=== PATIENT | female | born 1965 | race Caucasian/White ===

== ENCOUNTER 2017-06-15 09:14 | Day surgery (SDC) | payer BC, MEDICAID ==
[2017-06-15] MEDS ORDERED: Dextrose 5%-Lactated Ringers 1,000 ML IV SCH (09:45)
[2017-06-15] MEDS ORDERED: Midazolam 1 MG/ML 2 ML SDV ONE (11:09)
[2017-06-15] MEDS ORDERED: Propofol 200 MG/20 ML SDV ONE ×2 (11:12→11:16)
[2017-06-15] MEDS ORDERED: Ondansetron 4 MG/2 ML SDV ONE (11:16)
[2017-06-15 12:50] VITALS: BP 144/93
--- NOTE | 2017-06-18 13:35 | OR ---
DATE OF PROCEDURE: 06/15/2017 PREOPERATIVE DIAGNOSIS: Recurrent gastroesophageal reflux disease, status post previous Radha fundoplication. POSTOPERATIVE DIAGNOSES: 1. 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 2. Mild antral gastritis. PROCEDURES: 1. Esophagogastroduodenoscopy with: a. Biopsies of esophagogastric junction for histologic evaluation. b. Biopsies of antrum for CLOtest. ANESTHESIA: IV sedation. INDICATION FOR PROCEDURE: This is a 52-year-old, status post Radha fundoplication done in [place] in 2003. Recently, she has had increasing problems with reflux. Upper GI endoscope showed recurrence of the reflux with some evident destruction of the Radha fundoplication. There was also a suggestion of esophageal dysmotility at the time of the upper GI. We, therefore, obtained esophageal manometry, which was recently performed in [place] and was read as normal. There was no abnormal esophageal motility identified. The plan is to proceed with upper GI endoscopy to evaluate the current anatomy in preparation for probable redo Radha fundoplication. Potential risks including bleeding and perforation were discussed, and the patient wishes to proceed. DETAILS OF PROCEDURE: The patient was taken to the operating room and placed in a left lateral decubitus position. IV sedation was administered, after which the upper GI endoscope was passed orally through the length of the esophagus and into the stomach with retroflexion view of the fundus, and thereafter through the pyloric channel and into the proximal duodenum. The visualized hypopharynx, larynx, upper esophageal sphincter, and esophageal body were unremarkable with no dilation of the esophageal body. The patient did have some recurrence of the hiatal hernia probably measuring around 3 to 4 cm. There was a quite extensive upward extension of the columnar type mucosa, suggestive of possible Mcduffie's esophagus. There was no plaquing or stricturing, i.e. no gross evidence of neoplastic change per se. Upon entering the stomach, retroflexion revealed only a small remnant of the usual ridge one sees following Radha fundoplication, further indicating the breakdown of that procedure. There was some mild redness in the antrum. Otherwise, the pyloric channel and duodenum at the junction of the third and fourth portions were unremarkable. At this point, biopsies were obtained from the antrum and sent for CLOtest for H. pylori. Multiple biopsies were obtained circumferentially in the area of possible Mcduffie's esophagus at the area around the esophagogastric junction. Minimal bleeding from the biopsy sites was seen and the procedure then concluded. The patient was taken to the recovery room in satisfactory condition. Plan at this point will be to proceed with a redo Radha fundoplication. This will be scheduled for June 25. She is aware that this tends to be not necessarily as efficacious of a procedure. In many cases, will convert these patients to something nidia to Estelle-en-Y gastric bypass if the anatomy is not suitable for reasonable redo Radha fundoplication. However, given the patient's medical comorbidities, it appears to be contraindicated. It is notable that she does not have any gross evidence of gastroparesis at this time with the stomach being completely empty of any food and/or bile at the time of examination. The surgery will be tentatively scheduled for June 25, 2017. Yossi Webster MD /[id number]
== END 2017-06-15 12:50 | disposition home or self-care (01) ==
LOC: JP.SDS 09:14
PROVIDERS: ATTEND Surgery
DX: K29.50 Unspecified chronic gastritis without bleeding (principal); K44.9 Diaphragmatic hernia without obstruction or gangrene; K21.9 Gastro-esophageal reflux disease without esophagitis; F32.9 Major depressive disorder, single episode, unspecified; E03.9 Hypothyroidism, unspecified; E11.9 Type 2 diabetes mellitus without complications; E53.8 Deficiency of other specified B group vitamins; Z98.890 Other specified postprocedural states; Z79.899 Other long term (current) drug therapy; Z88.8 Allergy status to other drugs, medicaments and biological substances
CPT/HCPCS: 43239; 87081; J2250; J2405; J2704; 88305

== ENCOUNTER 2017-06-25 08:37 | Inpatient (IN) | payer BC, MEDICAID ==
[~2017-06-25 08:37] MED LIST: Dexamethasone 4 MG/ML SDV ONE; Glycopyrrolate 0.2 MG/ML 5 ML MDV ONE; Neostigmine Methylsulfate 1 MG/ML 5 ML Syringe ONE; Ondansetron 4 MG/2 ML SDV ONE; Propofol 200 MG/20 ML SDV ONE; Rocuronium 50 MG/5 ML Vial ONE; Succinylcholine 200 MG/10 ML MDV ONE
[2017-06-25] MEDS ORDERED: Gabapentin 300 MG Cap PO ONE (09:00)
[2017-06-25] MEDS ORDERED: Dextrose 5%-Lactated Ringers 1,000 ML IV SCH (09:00)
[2017-06-25] MEDS ORDERED: Scopolamine 1.5 MG Transdermal Patch TOP SCH (09:00)
[2017-06-25] MEDS ORDERED: Celecoxib 200 MG Cap PO ONE (09:00)
[2017-06-25] MEDS: HYDROmorphone/Normal Saline 15 MG/30 ML PCA IV PRN ×2 (11:02→16:35)
[2017-06-25] MEDS: cefOXitin 2 GM in Sodium Chloride 0.9% 50 ML IV ONE ×2 (13:01→17:47)
[2017-06-25] MEDS ORDERED: Lactated Ringers 1,000 ML ONE (13:35)
[2017-06-25] MEDS ORDERED: fentaNYL 100 MCG/2 ML SDV ONE (14:31)
[2017-06-25] MEDS ORDERED: Naloxone 0.4 MG/ML SDV IV PRN (16:01)
[2017-06-25] MEDS ORDERED: Ondansetron 4 MG/2 ML SDV IVPUSH PRN (16:03)
[2017-06-25] MEDS ORDERED: Ibuprofen 600 MG Tab PO PRN (16:05)
[2017-06-25] MEDS ORDERED: Glucose Gel 15 GM in 37.5 GM Tube PO PRN (16:07)
[2017-06-25] MEDS ORDERED: Glucagon,Human Recombinant 1 MG Vial IM PRN (16:07)
[2017-06-25] MEDS ORDERED: 50% Dextrose in Water 50 ML Syringe IVPUSH PRN (16:07)
[2017-06-25] MEDS ORDERED: Pseudoephedrine 30 MG Tab PO PRN (16:09)
[2017-06-25] MEDS ORDERED: Temazepam 15 MG Cap PO PRN (16:27)
[2017-06-25] MEDS: Pantoprazole 40 MG Vial IV SCH (16:38)
[2017-06-25] MEDS: Metoclopramide 10 MG/2 ML SDV IVPUSH SCH (16:42)
[2017-06-25] MEDS: Insulin Aspart 100 Units/ML 3 ML Pen SUBCUT PRN ×2 (16:57→21:41)
[2017-06-25] MEDS ORDERED: metFORMIN 500 MG Tab PO SCH (17:00)
[2017-06-25] MEDS: Dextrose 5%-Lactated Ringers 1,000 ML IV SCH (17:40)
[2017-06-25] MEDS: ceFAZolin 2 GM in Sodium Chloride 0.9% 50 ML IV SCH (20:37)
[2017-06-25] MEDS ORDERED: Insulin Detemir 100 Units/ML 3 ML Pen SUBCUT ONE (21:00)
[2017-06-26] MEDS: Dextrose 5%-Lactated Ringers 1,000 ML IV SCH (00:51)
[2017-06-26] MEDS: Metoclopramide 10 MG/2 ML SDV IVPUSH SCH ×3 (00:51→17:16)
[2017-06-26] MEDS: ceFAZolin 2 GM in Sodium Chloride 0.9% 50 ML IV SCH ×2 (04:14→11:36)
[2017-06-26] MEDS ORDERED: Dextrose 5%-Lactated Ringers 1,000 ML IV SCH (07:45)
[2017-06-26] MEDS: Insulin Aspart 100 Units/ML 3 ML Pen SUBCUT PRN ×4 (08:08→21:18)
[2017-06-26] MEDS: Levothyroxine 50 MCG Tab PO SCH (08:09)
[2017-06-26] MEDS: metFORMIN 500 MG Tab PO SCH ×2 (08:09→17:11)
[2017-06-26] MEDS: Metoprolol Succinate 50 MG Tab.ER PO SCH (08:10)
[2017-06-26] MEDS: Hydrochlorothiazide 25 MG Tab PO SCH (08:10)
[2017-06-26] MEDS: Aspirin 81 MG Tab.EC PO SCH (08:10)
[2017-06-26] MEDS: Furosemide 20 MG Tab PO SCH (08:11)
[2017-06-26] MEDS: Acetaminophen/HYDROcodone 325-5 MG Tab PO PRN ×3 (08:44→18:26)
[2017-06-26] MEDS: glipiZIDE 5 MG Tab.ER PO SCH (08:44)
[2017-06-26] MEDS: DULoxetine 30 MG Cap PO SCH (08:44)
[2017-06-26] MEDS: APRI PO SCH (08:47)
[2017-06-26] MEDS: Loratadine 10 MG Tab PO SCH (09:18)
[2017-06-26] MEDS: Glycopyrrolate 1 MG Tab PO SCH ×2 (11:31→11:36)
--- NOTE | 2017-06-26 13:12 | PN ---
DATE OF SERVICE: 06/26/2017 The patient has been afebrile with stable vital signs, overnight no major problems were noted. The blood sugar control is fairly good at this point, we will go up to a full liquid diet, back down the IV rate, and restart the remainder of her oral pain medications. Yossi Webster MD /[id number]
[2017-06-26] MEDS: VERIFY SCOPOLAMINE PATCH TOP SCH (17:11)
[2017-06-26] MEDS: Pantoprazole 40 MG Vial IV SCH (17:12)
[2017-06-26] MEDS ORDERED: Ondansetron 4 MG Tab.DIS PO PRN (22:20)
[2017-06-27 07:28] VITALS: BP 117/68
[2017-06-27] MEDS: Levothyroxine 50 MCG Tab PO SCH (07:38)
[2017-06-27] MEDS: glipiZIDE 5 MG Tab.ER PO SCH (07:39)
[2017-06-27] MEDS: metFORMIN 500 MG Tab PO SCH (08:43)
[2017-06-27] MEDS: Glycopyrrolate 1 MG Tab PO SCH (08:44)
[2017-06-27] MEDS: DULoxetine 30 MG Cap PO SCH (08:46)
[2017-06-27] MEDS: Hydrochlorothiazide 25 MG Tab PO SCH (08:47)
[2017-06-27] MEDS: Aspirin 81 MG Tab.EC PO SCH (08:47)
[2017-06-27] MEDS: Furosemide 20 MG Tab PO SCH (08:48)
[2017-06-27] MEDS: Metoprolol Succinate 50 MG Tab.ER PO SCH (08:49)
[2017-06-27] MEDS: VERIFY SCOPOLAMINE PATCH TOP SCH (08:50)
[2017-06-27] MEDS: Loratadine 10 MG Tab PO SCH (08:50)
[2017-06-27] MEDS: APRI PO SCH (08:51)
--- NOTE | 2017-06-27 12:07 | DISCH ---
ADMISSION DIAGNOSES: Failed Radha fundoplication; arthritis; depression, major, in remission; diabetes mellitus; hereditary neuropathy with pressure palsies; hypertension; hyperlipidemia; impingement syndrome of right shoulder; iron deficiency anemia; microcytic anemia; migraine headaches; neuropathy; hypothyroidism; and vitamin B12 deficiency. DISCHARGE DIAGNOSES: Diagnostic laparoscopy with lysis of adhesions and repair of paraesophageal diaphragmatic hernia with redo of Radha fundoplication for recurrent gastroesophageal reflux disease secondary to breakdown of previous Radha fundoplication associated with paraesophageal diaphragmatic hernia. Date of surgery, 06/25/2017. HISTORY: Sujey Thomas is a 52-year-old female who had GERD refractory to medical management and previous Radha fundoplication. After preoperative evaluation and discussion of possible risks and possible complications, she wished to proceed with surgical procedure. HOSPITAL COURSE: Sujey had her surgery on 06/25/2017. She had no operative complications. On postop day #1, she was started on a full liquid diet. Her Bazan catheter was discontinued. She was started on oral pain medication and her home medications. On postop day #2, she was ready to be discharged. She received adequate dietary instructions. Pain was well managed, activity was good, and vital signs were stable. PHYSICAL EXAMINATION: GENERAL: Sujey Thomas is a 52-year-old female. VITAL SIGNS: Height is 5 feet 1 inch. Weight is 187 pounds. TPR is 99.1, 89, 14, and blood pressure 117/68. HEENT: Negative. NECK: Supple. HEART: Regular rate and rhythm. LUNGS: Clear. ABDOMEN: Dressings dry and intact. Abdominal binder is on. EXTREMITIES: Without peripheral edema. DISPOSITION: Discharged to home. CONDITION: Stable and improving. FOLLOWUP APPOINTMENT: With Miriam Machado PA-C, on 07/04/2017 at 10 a.m. DISCHARGE MEDICATIONS: Home medications are Malin 5/325 mg 1 to 2 tabs every 4 hours p.r.n. pain, #50; milk of magnesia 30 mL to take 1 daily, 2 were sent home with the patient. The patient is to resume her home medication; aspirin 81 mg p.o. daily, vitamin D3 1000 international units daily, vitamin B12 1 mL IM every 3 weeks, Cymbalta 120 mg oral daily, desogestrel/ethinyl 28-day tablet to use as directed, ferrous sulfate 325 mg oral daily, Lasix 20 mg oral daily, Robinul Forte 4 mg oral daily, hydrochlorothiazide 25 mg oral daily, ibuprofen 600 mg q.6 hours p.r.n. pain, Basaglar U-100 45 units subcu at bedtime, Synthroid 50 mcg oral daily, loratadine/Sudafed 10/240 mg oral daily, metoprolol (Toprol-XL) 50 mg oral daily, omeprazole 40 mg oral daily, Zofran 4 mg oral q.8 hours p.r.n. nausea, Klor-Con 10 mEq oral daily, Zocor 20 mg oral daily, temazepam 22.5 mg oral at bedtime p.r.n. sleep, glipizide ER 10 mg oral daily, and metformin 1000 mg oral daily. DISCHARGE DIET: Drink 8 to 10 glasses of water a day. Full liquid diet for 2 weeks. ACTIVITY: As tolerated. No lifting greater than 10 pounds for 2 weeks[address]riving, do not drive while on pain medication. Shower/bathing, may shower. DISCHARGE INSTRUCTIONS: Notify provider if any fever, increased pain, nausea, or vomiting. Keep site clean and dry. Wear abdominal binder for 2 weeks and then as tolerated. Use incentive spirometer 10 times every hour while awake.
--- NOTE | 2017-07-02 13:45 | OR ---
DATE OF PROCEDURE: 06/25/2017 PREOPERATIVE DIAGNOSIS: Recurrent gastroesophageal reflux disease, status post previous Radha fundoplication. POSTOPERATIVE DIAGNOSIS: Recurrent gastroesophageal reflux disease secondary to breakdown of previous Radha fundoplication associated with paraesophageal diaphragmatic hernia formation. OPERATIVE PROCEDURES: Diagnostic laparoscopy with lysis of adhesions and repair of paraesophageal diaphragmatic hernia with redo Radha fundoplication ([id number]). ANESTHESIA: General. RETAIL SALESPERSON: Miriam Machado PA-C. INDICATIONS FOR PROCEDURE: This is a 52-year-old status post previous Radha fundoplication. Recently, she has had increasing problems with heartburn and workup was consistent with a recurrent hiatal hernia formation. The patient does complain of some intermittent dysphagia, but had an esophageal manometry exam which was essentially normal. Plan is to proceed with a redo fundoplication. Potential risks including bleeding, infection, injury to the viscera in the area, possible biliary or other problems with the fundoplication such as dysphagia as well as gastric emptying rate, gas-bloat syndrome as well as possibility of incomplete relief of reflux symptoms were all reviewed along with the remote possibility of cardiopulmonary, septic, or hemorrhagic complications leading to , and the patient wishes to proceed. DETAILS OF PROCEDURE: The patient was taken to the operating room. After general endotracheal anesthesia was induced, she was placed in a lithotomy position. Bazan catheter was inserted and the abdomen was prepped and draped. At 15 cm inferior and 5 cm left of xiphoid process, a transverse incision was made, and the peritoneal cavity entered under direct vision with an Optiview trocar. Four additional trocars were then placed across the upper and midabdomen, and general exploration was undertaken. The patient was noted to have fair bit of adhesions in the area of the previous fundoplication. These were taken down with a combination of cautery and Harmonic scalpel dissection. Eventually, the area of the previous fundoplication was dissected free from the surrounding soft tissues. It became evident that the patient had recurrence of the hiatal hernia with significant paraesophageal component of this including some omentum prolapsing in a plane coursing parallel to the esophagus. The previous wrap had largely become undone. The retroesophageal window was therefore relatively straightforward in terms of reestablishing that area and posterior crural repair was then accomplished using 0 Ethibond sutures reinforced with PTFE pledgets. The fundus had fair bit of scarring around it, but this was eventually likewise dissected free from the surrounding soft tissues to the point that it was satisfactorily mobile. The short gastric vessels had already been taken down, other than for some of the highest and posterior short gastric vessels which were now taken down with Harmonic scalpel. This allowed a reasonably mobile fundus to be retrieved through the retroesophageal window. A guidewire was then passed per Anesthesia and over this, a 54-Danish dilator was placed. A 2- cm 3-stitch fundoplication was then accomplished with 0 Ethibond sutures reinforced with PTFE pledgets. Each of the fundoplication sutures included bites of the underlying esophagus on each side and the upper aspect of the fundoplication was also sutured to the diaphragm with the same stitch-pledget combination to help fix it in position. At that point, the dilator and wire were removed, and the fundoplication was then found to be satisfactorily floppy, and at that point, no further problems were noted. Trocars were removed and the peritoneal cavity deflated. The fascia at the 12-mm site was closed with 0 Vicryl stitch, and the skin at each incision with 4-0 Vicryl skin stitch. Dressing was applied. The patient was taken to the recovery room in a satisfactory condition. There were no evident complications. Physician support assistant, Miriam Machado, played an essential role in assisting in this case, helping to position the patient, retract structures as needed, as well as suturing and cutting sutures when indicated. Her presence improved patient safety and decreased the operative time. Yossi Webster MD /[id number]
== END 2017-06-27 11:39 | disposition home or self-care (01) | DRG 220 ==
LOC: JP.SDS 08:37 → UNDOADMIN 10:15 → JP.SDSSCHI 10:15 → EDSTATUS 10:15 → JP.2SS 10:15 → UNDOADMIN 15:10 → JP.2SS 15:10
PROVIDERS: ADMIT Surgery; ATTEND Surgery
DX: K21.9 Gastro-esophageal reflux disease without esophagitis (principal); K44.9 Diaphragmatic hernia without obstruction or gangrene; E11.65 Type 2 diabetes mellitus with hyperglycemia; E11.40 Type 2 diabetes mellitus with diabetic neuropathy, unspecified; Z79.4 Long term (current) use of insulin; I10 Essential (primary) hypertension; E03.9 Hypothyroidism, unspecified; E53.8 Deficiency of other specified B group vitamins; E78.5 Hyperlipidemia, unspecified; M19.90 Unspecified osteoarthritis, unspecified site; D50.9 Iron deficiency anemia, unspecified; G60.9 Hereditary and idiopathic neuropathy, unspecified; Z88.8 Allergy status to other drugs, medicaments and biological substances; Z79.82 Long term (current) use of aspirin
CPT/HCPCS: 82962; A9270-GY; C9113; J0330; J0690; J0694; J1100; J1170; J2405; J2704; J2710; J2765; J3010; J7042; J7050; J7120

== ENCOUNTER 2017-12-17 08:32 | Day surgery (SDC) | payer BC, MEDICAID ==
[~2017-12-17 08:32] MED LIST changes: +Cyanocobalamin (Vitamin B12) 1,000 MCG/ML SDV IM ONE; -Dexamethasone 4 MG/ML SDV ONE; -Glycopyrrolate 0.2 MG/ML 5 ML MDV ONE; +Lactated Ringers 1,000 ML IV SCH; -Neostigmine Methylsulfate 1 MG/ML 5 ML Syringe ONE; -Ondansetron 4 MG/2 ML SDV ONE; -Propofol 200 MG/20 ML SDV ONE; -Rocuronium 50 MG/5 ML Vial ONE; -Succinylcholine 200 MG/10 ML MDV ONE
[2017-12-17] MEDS ORDERED: Glycopyrrolate 0.2 MG/ML 2 ML SYRINGE IVPUSH ONE (08:45)
[2017-12-17] MEDS ORDERED: MVI, Adult with Vitamin K 10 ML, Thiamine 200 MG, Chromium/Copper/Mang/Selen/Zn 1 ML in... IV ONE ×4 (09:00)
[2017-12-17] MEDS ORDERED: Ampicillin/Sulbactam Na 3 GM in Sodium Chloride 0.9% 100 ML IV ONE (09:30)
[2017-12-17] MEDS ORDERED: Midazolam 1 MG/ML 2 ML SDV ONE (10:09)
[2017-12-17] MEDS ORDERED: Propofol 200 MG/20 ML SDV ONE (10:09)
[2017-12-17] MEDS ORDERED: fentaNYL 100 MCG/2 ML SDV ONE (10:09)
[2017-12-17 11:58] VITALS: BP 143/84
--- NOTE | 2017-12-25 07:32 | OR ---
DATE OF PROCEDURE: 12/17/2017 PREOPERATIVE DIAGNOSIS: Complaints of nausea and dysphagia status post Radha fundoplication. POSTOPERATIVE DIAGNOSES: 1. Intact Radha fundoplication without any gross inflammation or narrowing of the esophagogastric junction. 2. Large gastric bezoar. OPERATIVE PROCEDURES: Esophagogastroduodenoscopy. ANESTHESIA: IV sedation. INDICATION FOR PROCEDURE: The patient is status post a Radha fundoplication in June of this year. She complains of some problems with dysphagia and emesis, although her weight has been reasonably stable. She presently is on omeprazole 40 mg a day and also has a history of type 2 diabetes mellitus, and a hereditary neuropathy without a more specific diagnosis. Plan is to proceed with an upper GI endoscopy with biopsies or dilation as indicated. Potential risks of procedure including bleeding and perforation were discussed, and the patient wishes to proceed. DETAILS OF PROCEDURE: The patient was taken to the operating room and placed in a left lateral decubitus position. IV sedation was administered, after which the upper GI endoscope was passed orally through the length of the esophagus and into the stomach with retroflexion view of the fundus, and thereafter through the pyloric channel and into the junction of the third and fourth portions of the duodenum. Findings included normal hypopharynx, larynx, upper esophageal sphincter, and esophageal body. There was no dilation of the esophagus. At the EG junction, there was normal appearing Radha fundoplication. The mucosa at the esophagogastric junction was entirely without any gross inflammation, and with air insufflation, the opening through the fundoplication easily opened up and the scope easily passed through that area, i.e. it did not appear to be overly tightened. The striking finding here, however, was that of a quite large gastric bezoar, consisting of a large amount of old vegetable type matter. This was associated with some mild redness where the bezoar was in contact with the stomach, but otherwise no erosions or ulcers were seen. The pyloric channel and the visualized portion of the duodenum were unremarkable. The scope was then withdrawn and the above findings reconfirmed. The patient's main problem at this point probably has to do with her impaired gastric emptying likely related to her longstanding type 2 diabetes mellitus, and the plan will be to start her on some Reglan. With the underlying neurological status, we will be somewhat careful with the dosing, I think we will go with Reglan 10 mg before breakfast and at bedtime, i.e. twice a day rather than standard four times a day, and then she will be instructed on anti-bezoar diet. 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 This would tend to be augmented by taking in of high calorie of liquids with relatively rapid emptying of the stomach of the liquids while the solid material would tend to be held in the stomach. Long-term, if the patient continues to be symptomatic, the approach could be a proximal partial gastrectomy with Estelle-en-Y reconstruction. This may be something nidia to a gastric bypass, it would resolve the problems with the impaired gastric emptying and would also likely improve her metabolic status in terms of hyperlipidemia, hypertension, as well as make her diabetes much more well controlled. The patient seems to think that her neurological status would prevent that from being an option, but if we get to a point where she remains severely symptomatic regarding the gastric emptying that issue probably needs to be more formally addressed, as we do these procedures on people with multiple sclerosis and such without significant problems. The plan will be to have this patient seen by Miriam Machado PA-C at [facility] in 1 month to assess how we are doing with regard to overall symptom control. Yossi Webster MD /[id number]
== END 2017-12-17 10:35 | disposition home or self-care (01) ==
LOC: JP.SDS 08:32
PROVIDERS: ATTEND Surgery
DX: T18.2XXA Foreign body in stomach, initial encounter (principal); I10 Essential (primary) hypertension; K21.9 Gastro-esophageal reflux disease without esophagitis; E11.9 Type 2 diabetes mellitus without complications; F32.9 Major depressive disorder, single episode, unspecified; Z88.8 Allergy status to other drugs, medicaments and biological substances; X58.XXXA Exposure to other specified factors, initial encounter; Z98.890 Other specified postprocedural states
CPT/HCPCS: 36415; 81025; 83735; J0295; J2250; J2704; J3010; J3411; J3420; J7030; J7120